=== PATIENT | male | born 1970 | race African-American/Black ===

== ENCOUNTER 2020-05-11 18:42 | Emergency (ER) | payer OTHER ==
[2020-05-11 19:39] VITALS: PULSE 89; TEMP 98.5; BMI 24.7
[2020-05-11] MEDS ORDERED: LOSARTAN POTASSIUM 50 MG TABLET PO ONE (19:49)
[2020-05-11] MEDS ORDERED: LOSARTAN POTASSIUM 50 MG TABLET ONE (20:00)
[2020-05-11] MEDS ORDERED: ACETAMINOPHEN 325 MG TABLET (FP) PO ONE (20:21)
[2020-05-11] MEDS ORDERED: ACETAMINOPHEN 325 MG TABLET (FP) ONE (21:00)
[2020-05-11 21:43] VITALS: BP 137/100
== END 2020-05-11 21:55 | disposition home or self-care (01) ==
LOC: JER 18:42
DX: R51.9 Headache, unspecified (principal); S09.90XA Unspecified injury of head, initial encounter
CPT/HCPCS: 70450-TC; 72125-TC; 93005; 93010; 99285-25

== ENCOUNTER 2023-03-05 04:39 | Day surgery (SDC) | payer OTHER ==
[2023-02-27 14:05] VITALS: BMI 27.2
[2023-03-05] MEDS ORDERED: FENTANYL CITRATE/PF 50 MCG/ML VIAL ONE (11:36)
[2023-03-05] MEDS ORDERED: MIDAZOLAM HCL 2 MG/2 ML SINGLE DOSE VIAL ONE (11:36)
[2023-03-05] MEDS ORDERED: FENTANYL CITRATE/PF 50 MCG/ML VIAL IVPUSH ONE (12:05)
[2023-03-05] MEDS ORDERED: MIDAZOLAM HCL 2 MG/2 ML SINGLE DOSE VIAL IVPUSH ONE (12:05)
[2023-03-05 12:59] VITALS: RESP 18; TEMP 98.2
[2023-03-05 14:26] VITALS: BP 153/94; PULSE 64
== END 2023-03-05 14:36 | disposition home or self-care (01) ==
LOC: JRADIR 04:39
PROVIDERS: ATTEND Urology
PROC: 0T903ZX Drainage of Right Kidney, Percutaneous Approach, Diagnostic (ICD-10-PCS; principal; 2023-03-05)
DX: N28.1 Cyst of kidney, acquired (principal)
CPT/HCPCS: 50390; 74425-TC-FY; 77012-TC; 87070; 87075; 87102; 87116; 87205; 87206; 87210